=== PATIENT | male | born 1935 | race Caucasian/White ===

== ENCOUNTER 2017-03-10 14:33 | Observation (INO) | payer MEDICARE, BC ==
[2017-03-10] VITALS (7 sets, daily range): BP systolic 143–184; BP diastolic 71–92; PULSE 78–96; RESP 16–20; TEMP 97.4–98.4; O2SAT 97–99
[~2017-03-10] VITALS: Ht 180.3 cm; Wt 100.0 kg
[~2017-03-10 14:33] MED LIST: ACET325 PO; ALPR2TAB3 PO; APIX5TAB PO; ATOR40TA49 PO; CARV12.52 PO; DOCU1CAP39 PO; FURO20TA PO; OXYBXL10 PO; SUVO1TAB2; VIAG50TA PO
--- NOTE | 2017-03-10 15:08 | PD ---
Physical Exam Time Seen by Provider: 15:08 Narrative 81 y/o male with lower back pain and a wound on his buttocks. Vital signs reviewed. Seen at triage desk. Awaiting bed placement. Data Data Last Documented VS Vital Signs Date Time Temp Pulse Resp B/P Pulse Ox O2 Delivery O2 Flow Rate FiO2 03/10/17 14:39 98.4 88 16 165/92 97 Room Air [facility] Medical Record Reviewed: Yes Supervised Visit with AMPARO: Octaviano Lai Mar 10, 2017 15:08
[2017-03-10 16:52] LABS: AUTOMATED NEUTROPHIL # 3.3 TH/MM3 (1.8-7.7); BASOPHIL % 0.4 % (0.0-2.0); EOSINOPHIL # 0.3 TH/MM3 (0-0.4); EOSINOPHIL % 5.1 % (0.0-4.0); HEMATOCRIT 32.1 % (39.0-51.0); LYMPH % 20.8 % (9.0-44.0); LYMPHOCYTE # 1.1 TH/MM3 (1.0-4.8); MEAN CELL VOLUME 104.2 FL (80.0-100.0); MEAN CORPUSCULAR HEMOGLOBIN 36.1 PG (27.0-34.0); MEAN CORPUSCULAR HGB CONC 34.6 % (32.0-36.0); MONO % 12.2 % (0.0-8.0); NEUT % 61.5 % (16.0-70.0); PLATELET COUNT 98 TH/MM3 (150-450); RED BLOOD COUNT 3.08 MIL/MM3 (4.50-5.90); RED CELL DISTRIBUTION WIDTH 19.5 % (11.6-17.2); WHITE BLOOD COUNT 5.3 TH/MM3 (4.0-11.0)
[2017-03-10 16:54] LABS: HEMO FLAGS AUTO DIFF
[2017-03-10 17:03] LABS: ALKALINE PHOSPHATASE 61 U/L (45-117); TOTAL BILIRUBIN ADULT 1.2 MG/DL (0.2-1.0)
[2017-03-10 17:11] LABS: ALT (GPT) 18 U/L (12-78); ANION GAP 8 MEQ/L (5-15); AST (GOT) 32 U/L (15-37); BICARBONATE 27.5 MEQ/L (21.0-32.0); BLOOD UREA NITROGEN 20 MG/DL (7-18); CHLORIDE 103 MEQ/L (98-107); GLOMERULAR FILTRATION RATE 65 ML/MIN (>89); POTASSIUM 4.4 MEQ/L (3.5-5.1); SODIUM (NA) 138 MEQ/L (136-145)
[2017-03-10 17:18] LABS: BACTERIA, URINE RARE /hpf; BLOOD, URINE MOD (NEG); COMMENT (UR) CULTURE INDICATED; CULTURE IF INDICATED CULTURE INDICATED; GLUCOSE,URINE NEG (NEG); KETONE, URINE NEG (NEG); MUCUS URINE FEW /lpf (OCC); NITRITE,URINE NEG (NEG); PH, URINE 5.5 (5.0-8.5); SQUAMOUS EPITHELIAL CELL URINE <1 /hpf (0-5); URINE COLOR YELLOW (YELLW/STRAW)
--- NOTE | 2017-03-10 17:26 | PD ---
HPI Chief Complaint: Pain: Acute or Chronic Time Seen by Provider: 15:16 Travel History International Travel<30 days: No Contact w/Intl Traveler<30days: No Traveled to known affect area: No History of Present Illness HPI This is an 81-year-old male who presents today with complaints of back pain and lower extremity weakness. The patient states he fell several days ago and since then has had difficulty getting up secondary to weakness. He also reports pain in his lower lumbar back. The patient is currently taking eliquis. He has a large hematoma across his lower back. There is significant bruising across his upper lower back. He denies any loss of bowel or bladder function. Patient also reports a pressure ulcer on his right buttock near his anus. He states that he does sit a lot. He reports that it started about several weeks ago and is painful when he sits on the toilet. He reports putting a dressing over his ulcer to help with the pain and keep it as clean as possible. PFSH Past Medical History Hx Anticoagulant Therapy: Yes Arthritis: Yes Asthma: No Autoimmune Disease: No Blood Disorders: No Anxiety: No Depression: No Heart Rhythm Problems: Yes (A FIB) Cancer: Yes (MELANOMA BACK) Cardiovascular Problems: Yes High Cholesterol: Yes Chemotherapy: No Chest Pain: No Congestive Heart Failure: Yes COPD: No Cerebrovascular Accident: Yes Coronary Artery Disease: Yes Diabetes: No Diminished Hearing: No Endocrine: No Gastrointestinal Disorders: No GERD: Yes Genitourinary: Yes (CATHETER FROM 06/27 UNTIL 03/28, MULTIPLE UTI) Headaches: No Hepatitis: No Hiatal Hernia: No Hypertension: Yes Immune Disorder: No Implanted Vascular Access Dvce: No Kidney Stones: Yes (LITHOTRIPSY 06/20) Musculoskeletal: Yes (ARTHRITIS ) Neurologic: Yes (MINOR STROKE PER MRI FINDINGS) Psychiatric: No Reproductive: No Respiratory: Yes Immunizations Current: No Migraines: No Myocardial Infarction: Yes (1991) Radiation Therapy: No Renal Failure: Yes (HX OF) Seizures: No Sickle Cell Disease: No Sleep Apnea: No Thyroid Disease: No Ulcer: No Tetanus Vaccination: > 5 Years Influenza Vaccination: No PNEUMOCCOCAL Vaccine (Year): 2 Past Surgical History Abdominal Surgery: No AICD: No Appendectomy: No Arteriovenous Shunt: No Body Medical Devices: NECK METAL Cardiac Surgery: No Cholecystectomy: No Ear Surgery: No Endocrine Surgery: No Eye Surgery: No Genitourinary Surgery: Yes (LITHOTRIPSY) Gynecologic Surgery: No Insulin Pump: No Joint Replacement: Yes (BILATERAL TKR) Neurologic Surgery: Yes (ACDF 2013, CERVICAL SPINE C-5,C5-6 DECOMPRESSION AND FUSION) Oral Surgery: No Pacemaker: No Thoracic Surgery: No Other Surgery: Yes (BILAT KNEE,CSPINE 4-5,PROSTATE) Social History Alcohol Use: Yes (1 SCOTCH AND WATER EVERY OTHER DAY) Tobacco Use: No (OCCASIONAL CIGAR) Substance Use: No (PT DENIES ) Allergies-Medications (Allergen,Severity, Reaction): Coded Allergies: Crab (Verified Allergy, Severe, Hives, 05/17/16) SWELLING FACE Yogurt (Verified Allergy, Severe, Hives, 05/17/16) WITH [place] YOGURT ABLE TO EAT OTHER YOPGURT Codeine (Verified Allergy, Mild, hallucinations, 05/17/16) *MDRO Multi-Drug Resistant Organism (Unverified Allergy, Unknown, 05/17/16) 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), 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) Reported Meds & Prescriptions Reported Meds & Active Scripts Active Reported Mapap (Acetaminophen) 325 Mg Tab 650 Mg PO Q4HR PRN Carvedilol 25 Mg Tab 25 Mg PO BID Senna S (Sennosides-Docusate Sodium) 8.6-50 Mg Tab 2 Tab PO DAILY PRN Lasix (Furosemide) 40 Mg Tab 40 Mg PO DAILY Alprazolam 0.25 Mg Tab 0.25 Mg PO DAILY PRN Tramadol (Tramadol HCl) 50 Mg Tab 50 Mg PO DAILY PRN Amlodipine (Amlodipine Besylate) 5 Mg Tab 5 Mg PO DAILY Review of Systems Except as stated in HPI: all other systems reviewed are Neg General / Constitutional: No: Fever, Chills HENT: No: Headaches, Vertigo, Neck Pain Cardiovascular: No: Chest Pain or Discomfort, Palpitations Respiratory: No: Cough, Shortness of Breath Gastrointestinal: No: Nausea, Vomiting, Diarrhea, Abdominal Pain Genitourinary: No: Dysuria, Incontinence Musculoskeletal: Positive: Weakness (bilateral lower extremities), Pain (lower thoracic pain.) Skin: Positive Other (pressure sore on right buttocks) Neurologic: Positive: Weakness (bilateral lower extremities), No: Dizziness, Syncope, Headache Physical Exam Narrative GENERAL: Well-developed well-nourished male in no acute respiratory distress. SKIN: Focused skin assessment warm/dry. HEAD: Atraumatic. Normocephalic. EYES: No scleral icterus. No injection or drainage. ENT: No nasal bleeding or discharge. Mucous membranes pink and moist. NECK: Trachea midline. Supple. CARDIOVASCULAR: Regular rate and rhythm. No murmur appreciated. RESPIRATORY: No accessory muscle use. Clear to auscultation. Breath sounds equal bilaterally. GASTROINTESTINAL: Abdomen soft, non-tender, nondistended. MUSCULOSKELETAL: No obvious deformities. No clubbing. No cyanosis. Trace pretibial edema. Patient has bruising of his right lower thigh. BACK: Subjective tenderness in the lower thoracic spine. There is no posterior spinous process deformity. The patient has a large bruise extending across his lower thoracic back. NEUROLOGICAL: Awake and alert. No obvious cranial nerve deficits. The patient has 4+ out of 5 strength to his bilateral lower extremities. He is able to stand on his tippy toes however this is with assistance. Data Data Last Documented VS Vital Signs Date Time Temp Pulse Resp B/P Pulse Ox O2 Delivery O2 Flow Rate FiO2 03/10/17 18:00 97.8 81 16 148/86 99 Room Air Orders Mri T Spine W/O Contrast (03/10/17 15:37) Complete Blood Count With Diff (03/10/17 15:37) Comprehensive Metabolic Panel (03/10/17 15:37) Urinalysis - C+S If Indicated (03/10/17 15:37) Iv Access Insert/Monitor (03/10/17 15:37) Ecg Monitoring (03/10/17 15:37) Oximetry (03/10/17 15:37) Ct Abd/Pel W/O Iv Contrast (03/10/17 15:37) Urine Culture (03/10/17 16:11) Ceftriaxone Inj (Rocephin Inj) (03/10/17 17:45) Sodium Chlor 0.9% 1000 Ml Inj (Ns 1000 M (03/10/17 19:15) Admit Order (Ed Use Only) (03/10/17 19:16) Labs Laboratory Tests Test 03/10/17 03/10/17 03/10/17 15:15 15:55 16:11 Sodium Level 138 MEQ/L Potassium Level 4.4 MEQ/L Chloride Level 103 MEQ/L Carbon Dioxide Level 27.5 MEQ/L Anion Gap 8 MEQ/L Blood Urea Nitrogen 20 MG/DL Creatinine 1.08 MG/DL Estimat Glomerular Filtration 65 ML/MIN Rate Random Glucose 100 MG/DL Calcium Level 8.8 MG/DL Total Bilirubin 1.2 MG/DL Aspartate Amino Transf 32 U/L (AST/SGOT) Alanine Aminotransferase 18 U/L (ALT/SGPT) Alkaline Phosphatase 61 U/L Total Protein 6.7 GM/DL Albumin 3.3 GM/DL White Blood Count 5.3 TH/MM3 Red Blood Count 3.08 MIL/MM3 Hemoglobin 11.1 GM/DL Hematocrit 32.1 % Mean Corpuscular Volume 104.2 FL Mean Corpuscular Hemoglobin 36.1 PG Mean Corpuscular Hemoglobin 34.6 % Concent Red Cell Distribution Width 19.5 % Platelet Count 98 TH/MM3 Mean Platelet Volume 10.4 FL Neutrophils (%) (Auto) 61.5 % Lymphocytes (%) (Auto) 20.8 % Monocytes (%) (Auto) 12.2 % Eosinophils (%) (Auto) 5.1 % Basophils (%) (Auto) 0.4 % Neutrophils # (Auto) 3.3 TH/MM3 Lymphocytes # (Auto) 1.1 TH/MM3 Monocytes # (Auto) 0.6 TH/MM3 Eosinophils # (Auto) 0.3 TH/MM3 Basophils # (Auto) 0.0 TH/MM3 CBC Comment AUTO DIFF Differential Total Cells 100 Counted Neutrophils % (Manual) 61 % Lymphocytes % 19 % Monocytes % 16 % Eosinophils % 1 % Basophils % 1 % Neutrophils # (Manual) 3.3 TH/MM3 Metamyelocytes 1 % Myelocytes 1 % Nucleated Red Blood Cells 1 /100 WBC Differential Comment FINAL DIFF MANUAL Platelet Estimate LOW Platelet Morphology Comment NORMAL Ovalocytes 1+ Urine Color YELLOW Urine Turbidity CLEAR Urine pH 5.5 Urine Specific [place] 1.011 Urine Protein NEG mg/dL Urine Glucose (UA) NEG mg/dL Urine Ketones NEG mg/dL Urine Occult Blood MOD Urine Nitrite NEG Urine Bilirubin NEG Urine Urobilinogen LESS THAN 2.0 MG/DL Urine Leukocyte Esterase MOD Urine RBC 52 /hpf Urine WBC 64 /hpf Urine Squamous Epithelial <1 /hpf Cells Urine Amorphous Sediment RARE Urine Bacteria RARE /hpf Urine Mucus FEW /lpf Microscopic Urinalysis Comment CULTURE INDICATED MDM Medical Decision Making Medical Screen Exam Complete: Yes Emergency Medical Condition: Yes Differential Diagnosis Sciatica versus central canal stenosis versus contusion Narrative Course 81-year-old male who presents after having multiple falls. The patient states he's been weak. He denies any loss of bowel or bladder function. The patient does have a large bruises across his lower thoracic upper lumbar back area. CT scan shows bruising without any intra-abdominal injury. MRI of the thoracic spine shows no evidence of acute cord injury. The patient does have a UTI. He is also dehydrated. He will require admission for I dehydration. He's been given 1 g of Rocephin. Urine cultures are pending at this time. I discussed the case with Dr. Gonzalez, [facility] hospitalist, who agrees with a observation admission. Diagnosis Primary Impression: Weakness Additional Impressions: mechanical falls Dehydration Cystitis HX: anticoagulation Admitting Information Admitting Physician Requests: Observation Stephon Ureña MD Mar 10, 2017 17:26
[2017-03-10 17:31] LABS: BASOPHILS 1 % (0-2); CORRECTED NUCLEATED RBC 1 /100 WBC (0-0); EOSINOPHILS 1 % (0-4); METAMYELOCYTES 1 % (0-1); MYELOCYTES 1 % (0-0); NEUTROPHIL # MANUAL DIFF 3.3 TH/MM3 (1.8-7.7); POLYS (SEG NEUTROPHILS) 61 % (16-70); WBC DIFF SAMPLE 100
[2017-03-10 17:32] LABS: OVALOCYTES 1+ (NORMAL); PLATELET ESTIMATE SMEAR LOW (NORMAL); PLATELET MORPHOLOGY NORMAL (NORMAL); SCAN/DIFF FINAL DIFF MANUAL
--- NOTE | 2017-03-10 17:39 | RADRPT ---
EXAM DATE/TIME: 03/10/2017 16:47 [facility] COMPARISON: CT ABDOMEN & PELVIS W/O CONTRAST, April 14, 2014, 18:29. INDICATIONS : Patient with large hematoma across flank and back. ORAL CONTRAST: No oral contrast ingested. RADIATION DOSE: 15.39 CTDIvol (mGy) MEDICAL HISTORY : Cardiovascular disease. Cerebrovascular disease. Renal calculi. Hypertension SURGICAL HISTORY : Lumbar laminectomy ENCOUNTER: Initial ACUITY: 1 day PAIN SCALE: 5/10 LOCATION: Abdomen TECHNIQUE: Volumetric scanning of the abdomen and pelvis was performed. Using automated exposure control and ad justment of the mA and/or kV according to patient size, radiation dose was kept as low as reasonably achievable to obtain optimal diagnostic quality images. DICOM format image data is available electro nically for review and comparison. FINDINGS: There is evidence of subcutaneous hematomas within the left flank measuring 3.6 x 2.8 cm and more inf eriorly in the region of the left medial buttock measuring 5.1 x 5.5 cm. No underlying fracture is n oted at either site. The heart is enlarged. Bibasilar fibrotic scarring and/or atelectasis are noted. Evaluation of the solid organs of the abdomen is limited by the lack of intravenous contrast. Cholelithiasis is noted. Uncomplicated colonic diverticulosis is noted. There are tiny calcified nonobstructing bilateral r enal calculi with the largest on the left measuring 4 mm. Bilateral renal cysts are stable with the l argest on the left measuring 2.6 cm. No hydronephrosis is noted. The abdominal aortic aneurysm is ca lcified but is not aneurysmally dilated. The inferior vena cava is normal. There is no paraortic, ret roperitoneal or mesenteric lymphadenopathy. No ascites is noted. Degenerative changes and scoliosis of the thoracolumbar spine are noted. The urinary bladder is unremarkable. CONCLUSION: 1. Small subcutaneous hematomas within the left flank measuring 3.6 x 1.8 cm and left medial buttock measuring 5.1 x 5.5 cm without underlying bony abnormality. 2. Multiple calcified nonobstructing bilateral renal calculi. 3. Bilateral renal cysts. 4. Cholelithiasis. 5. Uncomplicated colonic diverticulosis. 6. Cardiomegaly. 7. Degenerative changes and scoliosis of the lumbar spine. Gerald Henning MD on March 10, 2017 at 17:23 Board Certified Radiologist. This report was verified electronically.
[2017-03-10] MEDS ORDERED: cefTRIAXone INJ 1,000 MG in SODIUM CHLORIDE 0.9% INJ 100 ML IV ONE (17:45)
--- NOTE | 2017-03-10 18:30 | RADRPT ---
EXAM DATE/TIME: 03/10/2017 17:47 [facility] COMPARISON: No previous studies available for comparison. INDICATIONS : Pain. MEDICAL HISTORY : Hypertension. Gastroesophageal reflux disease. Congestive heart failure. Coronary artery disease. SURGICAL HISTORY : Fusion, cervical. Total knee replacement, left. Total knee replacement, right. Lumbar laminectomy. ENCOUNTER: Initial ACUITY: 2 day PAIN SCORE: 6/10 LOCATION: Back. TECHNIQUE: Multiplanar multisequence MRI of the thoracic spine was performed. FINDINGS: There is no fracture or spondylolisthesis in the thoracic spine. Moderate degenerative disc disease i s present. Small right paracentral protrusion present at T8-9 without cord impingement. No cord mass or cord edema. Minimal scoliosis. CONCLUSION: 1. No acute findings. Moderate degenerative disc disease as above. No cord impingement or significant canal stenosis. No fracture or spondylolisthesis. Heterogeneous marrow appearance. Nakul Quinn MD on March 10, 2017 at 18:25 Board Certified Radiologist. This report was verified electronically.
[2017-03-10] MEDS ORDERED: SENN8.6T8 PO (19:01)
[2017-03-10] MEDS ORDERED: CARV25TA PO (19:01)
[2017-03-10] MEDS ORDERED: AMLO5TAB2 PO (19:01)
[2017-03-10] MEDS ORDERED: ALPR0.25 PO (19:01)
[2017-03-10] MEDS ORDERED: TRAM50TA PO (19:01)
[2017-03-10] MEDS ORDERED: FURO1TAB60 PO (19:01)
[2017-03-10] MEDS ORDERED: MAPA325T PO (19:01)
[2017-03-10] MEDS ORDERED: ACETAMINOPHEN 325 MG TAB PO PRN (19:30)
[2017-03-10] MEDS ORDERED: SODIUM CHLORIDE 0.9% FLUSH 10 ML FLUSH IV FLUSH PRN (19:30)
[2017-03-10] MEDS ORDERED: ONDANSETRON HCL 4 MG/2 ML VIAL IVP PRN (19:30)
[2017-03-10] MEDS: SODIUM CHLOR 0.9% 1000 ML INJ 1,000 ML IV SCH (19:51)
[2017-03-10] MEDS: SODIUM CHLORIDE 0.9% FLUSH 10 ML FLUSH IV FLUSH SCH (20:50)
[2017-03-11] VITALS (9 sets, daily range): BP systolic 111–178; BP diastolic 53–94; PULSE 53–107; RESP 18–20; TEMP 97.4–98.7; O2SAT 93–100
[2017-03-11] MEDS: SODIUM CHLOR 0.9% 1000 ML INJ 1,000 ML IV SCH ×2 (03:15→06:12)
[2017-03-11 05:53] LABS: AUTOMATED NEUTROPHIL # 2.6 TH/MM3 (1.8-7.7); BASOPHIL % 0.4 % (0.0-2.0); EOSINOPHIL # 0.2 TH/MM3 (0-0.4); EOSINOPHIL % 5.2 % (0.0-4.0); HEMATOCRIT 31.3 % (39.0-51.0); LYMPH % 23.1 % (9.0-44.0); MEAN CELL VOLUME 103.5 FL (80.0-100.0); MEAN CORPUSCULAR HEMOGLOBIN 35.6 PG (27.0-34.0); MEAN CORPUSCULAR HGB CONC 34.4 % (32.0-36.0); MONO % 11.7 % (0.0-8.0); NEUT % 59.6 % (16.0-70.0); PLATELET COUNT 73 TH/MM3 (150-450); RED BLOOD COUNT 3.03 MIL/MM3 (4.50-5.90); RED CELL DISTRIBUTION WIDTH 19.6 % (11.6-17.2); WHITE BLOOD COUNT 4.3 TH/MM3 (4.0-11.0)
[2017-03-11 05:58] LABS: HEMO FLAGS AUTO DIFF
[2017-03-11 06:47] LABS: BICARBONATE 27.9 MEQ/L (21.0-32.0); POTASSIUM 3.9 MEQ/L (3.5-5.1)
[2017-03-11 08:10] LABS: PLATELET ESTIMATE SMEAR LOW (NORMAL); PLATELET MORPHOLOGY NORMAL (NORMAL); SCAN/DIFF AUTO DIFF CONFIRMED
[2017-03-11] MEDS: SODIUM CHLORIDE 0.9% FLUSH 10 ML FLUSH IV FLUSH SCH (09:00)
[2017-03-11] MEDS ORDERED: MACR100C2 PO (13:12)
--- NOTE | 2017-03-11 13:13 | HHI.HP ---
[facility]PI [facility] Phillip Horner MD Admission Diagnosis dehydration, uti, weakness Diagnoses: Chief Complaint: Back pain and lower extremity weakness Travel History International Travel<30 Days: No Contact w/Intl Traveler <30 Da: No Traveled to Known Affected Are: No History of Present Illness Written by Jasbir Ramos, acting as scribe for Dr. Harris on 03/11/17 at 12:58. This note was transcribed by scribDANILO Bermeo. I, Dr. López Harris personally performed the history, physical exam, and medical decision making; and confirmed the accuracy of the information in the transcribed note. Authenticated by Dr. López Harris on 03/11/17 at 16:13. 81-year-old male with a past medical history of chronic back pain, CHF, BPH, A. fib who presented with lower back pain and difficulty ambulating. The patient states that he woke up with lower back pain last week. He states the pain has been making it difficult to stand and he has been having weakness in his legs. This is also been calling to see him to fall some. He denies any loss of bowel or bladder control. Patient reports that he had a similar episode with his back in the past that improved with steroids. He denies any lightheadedness, dizziness, urinary symptoms. Occasionally he gets constipated. At this time he reports that his back pain has resolved overnight and he's been able to ambulate without assistance. PT recommends [facility], which the patient refuses. The patient is asking to go home as his symptoms have resolved. The patient takes Tylenol and Aleve for back pain at home. Review of Systems Except as stated in HPI: all other systems reviewed are Neg Past Family Social History Past Medical History Anxiety Hypertension Chronic back pain Atrial fibrillation Coronary artery disease BPH History of stroke Congestive heart failure Past Surgical History TURP Lithotripsy Bilateral knee replacement Anterior cervical fusion Back surgery 2 Reported Medications Mapap (Acetaminophen) 325 Mg Tab 650 Mg PO Q4HR PRN Carvedilol 25 Mg Tab 25 Mg PO BID Senna S (Sennosides-Docusate Sodium) 8.6-50 Mg Tab 2 Tab PO DAILY PRN Lasix (Furosemide) 40 Mg Tab 40 Mg PO DAILY Alprazolam 0.25 Mg Tab 0.25 Mg PO DAILY PRN Tramadol (Tramadol HCl) 50 Mg Tab 50 Mg PO DAILY PRN Amlodipine (Amlodipine Besylate) 5 Mg Tab 5 Mg PO DAILY Allergies: Coded Allergies: Crab (Verified Allergy, Severe, Hives, 05/17/16) SWELLING FACE Yogurt (Verified Allergy, Severe, Hives, 05/17/16) WITH [place]ORR[place] YOGURT ABLE TO EAT OTHER YOPGURT Codeine (Verified Allergy, Mild, hallucinations, 05/17/16) *MDRO Multi-Drug Resistant Organism (Unverified Allergy, Unknown, 05/17/16) 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), MRSA (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) Active Ordered Medications Current Medications Medications (Trade) Dose Ordered Sig/Aruna Route Start Time Stop Time Status Last Admin (NS Flush) 2 ml UNSCH PRN IV FLUSH 03/10/17 19:30 (NS Flush) 2 ml BID IV FLUSH 03/10/17 21:00 (Tylenol) 650 mg Q4H PRN PO 03/10/17 19:30 Ondansetron HCl 4 mg 4 mg Q6H PRN IVP 03/10/17 19:30 (Rocephin Inj/NS Inj) 100 ml @ 200 mls/hr Q24H IV 03/11/17 18:00 Family History Reviewed, no family history pertinent to current chief complaint Social History Denies any tobacco or drug use Has 1 alcoholic beverage every other day Physical Exam Vital Signs Vital Signs Date Time Temp Pulse Resp B/P Pulse Ox O2 Delivery O2 Flow Rate FiO2 03/11/17 11:08 97.8 107 18 138/89 100 03/11/17 07:15 97.7 80 18 133/79 98 03/11/17 04:00 90 03/11/17 03:40 97.4 73 19 142/94 93 03/11/17 03:10 97.4 53 19 111/53 94 03/11/17 01:38 98.7 107 20 178/85 97 03/11/17 00:05 84 03/10/17 22:27 96 03/10/17 20:42 184/87 03/10/17 20:39 97.4 88 20 97 03/10/17 18:00 97.8 81 16 148/86 99 Room Air 03/10/17 16:21 97.8 78 16 146/71 97 Room Air 03/10/17 15:45 81 16 143/71 98 Room Air 03/10/17 15:34 86 16 03/10/17 14:39 98.4 88 16 165/92 97 Room Air Physical Exam GENERAL: Well-developed well-nourished. In no acute distress. SKIN: Warm and dry. Ecchymosis on the extremities and back. HEENT: Normocephalic. Pupils equal and round. Mucous membranes pink and moist. CARDIOVASCULAR: Irregular rate and rhythm. No murmur appreciated. RESPIRATORY: No accessory muscle use. Clear to auscultation. Breath sounds equal bilaterally. GASTROINTESTINAL: Abdomen soft, non-tender, nondistended. Bowel sounds x4. MUSCULOSKELETAL: No obvious deformities. No clubbing or cyanosis. No edema. NEUROLOGICAL: Awake and alert. No focal neurological deficits. Moves upper and lower extremities spontaneously. Normal speech. PSYCHIATRIC: Appropriate mood and affect; insight and judgment normal. Laboratory Laboratory Tests Test 03/10/17 03/10/17 03/10/17 03/11/17 15:15 15:55 16:11 05:32 Sodium Level 138 139 Potassium Level 4.4 3.9 Chloride Level 103 104 Carbon Dioxide Level 27.5 27.9 Anion Gap 8 7 Blood Urea Nitrogen 20 17 Creatinine 1.08 0.93 Estimat Glomerular Filtration 65 78 Rate Random Glucose 100 106 Calcium Level 8.8 8.8 Total Bilirubin 1.2 Aspartate Amino Transf 32 (AST/SGOT) Alanine Aminotransferase 18 (ALT/SGPT) Alkaline Phosphatase 61 Total Protein 6.7 Albumin 3.3 White Blood Count 5.3 4.3 Red Blood Count 3.08 3.03 Hemoglobin 11.1 10.8 Hematocrit 32.1 31.3 Mean Corpuscular Volume 104.2 103.5 Mean Corpuscular Hemoglobin 36.1 35.6 Mean Corpuscular Hemoglobin 34.6 34.4 Concent Red Cell Distribution Width 19.5 19.6 Platelet Count 98 73 Mean Platelet Volume 10.4 8.9 Neutrophils (%) (Auto) 61.5 59.6 Lymphocytes (%) (Auto) 20.8 23.1 Monocytes (%) (Auto) 12.2 11.7 Eosinophils (%) (Auto) 5.1 5.2 Basophils (%) (Auto) 0.4 0.4 Neutrophils # (Auto) 3.3 2.6 Lymphocytes # (Auto) 1.1 1.0 Monocytes # (Auto) 0.6 0.5 Eosinophils # (Auto) 0.3 0.2 Basophils # (Auto) 0.0 0.0 CBC Comment AUTO DIFF AUTO DIFF Differential Total Cells 100 Counted Neutrophils % (Manual) 61 Lymphocytes % 19 Monocytes % 16 Eosinophils % 1 Basophils % 1 Neutrophils # (Manual) 3.3 Metamyelocytes 1 Myelocytes 1 Nucleated Red Blood Cells 1 Differential Comment FINAL DIFF AUTO DIFF MANUAL CONFIRMED Platelet Estimate LOW LOW Platelet Morphology Comment NORMAL NORMAL Ovalocytes 1+ Urine Color YELLOW Urine Turbidity CLEAR Urine pH 5.5 Urine Specific [place] 1.011 Urine Protein NEG Urine Glucose (UA) NEG Urine Ketones NEG Urine Occult Blood MOD Urine Nitrite NEG Urine Bilirubin NEG Urine Urobilinogen LESS THAN 2.0 Urine Leukocyte Esterase MOD Urine RBC 52 Urine WBC 64 Urine Squamous Epithelial <1 Cells Urine Amorphous Sediment RARE Urine Bacteria RARE Urine Mucus FEW Microscopic Urinalysis Comment CULTURE INDICATED Date/Time Procedure Status Source Growth 03/10/17 16:11 Urine Culture Received Urine Random Urine Pending Result Diagram: 03/11/17 0532 03/11/17 0532 Imaging Last Impressions Thoracic Spine MRI 03/10/171536 Signed Impressions: Service Date/Time: February 17:47 - CONCLUSION: 1. No acute findings. Moderate degenerative disc disease as above. No cord impingement or significant canal stenosis. No fracture or spondylolisthesis. Heterogeneous marrow appearance. Nakul Quinn MD Abdomen/Pelvis CT 03/10/171536 Signed Impressions: Service Date/Time: February 16:47 - CONCLUSION: 1. Small subcutaneous hematomas within the left flank measuring 3.6 x 1.8 cm and left medial buttock measuring 5.1 x 5.5 cm without underlying bony abnormality. 2. Multiple calcified nonobstructing bilateral renal calculi. 3. Bilateral renal cysts. 4. Cholelithiasis. 5. Uncomplicated colonic diverticulosis. 6. Cardiomegaly. 7. Degenerative changes and scoliosis of the lumbar spine. Gerald Henning MD Assessment and Plan Assessment and Plan 81-year-old male with a past medical history of chronic back pain, CHF, BPH, A. fib who presented with lower back pain and difficulty ambulating Acute on chronic back pain: Symptoms have improved. T-spine MRI with moderate degenerative changes, but no acute process, significant cord impingement or canal stenosis. Abdominal CT shows degenerative changes and scoliosis of the lumbar spine. Falls: Secondary to back pain. Subcutaneous left flank hematomas seen on abdominal CT. Symptoms have improved. PT recommends [facility], patient refuses. He reports he has DME from previous hospitalizations at home. UTI: UA with evidence of UTI. Could be contributing to patient's lower back discomfort. Urine culture preliminarily growing group D enterococcus. Continue on Macrobid. Follow-up with PCP for final culture and sensitivity results. Disposition: Discharge home today with [facility] PT and antibiotics for UTI Discharge patient to home Condition on discharge: Improved Heart healthy Diet as tolerated Ad Corinna activity Rx written: Macrobid for 5 days. Follow-up with primary care physician within one week. Discussed Condition With Patient, RN, case management Jasbir Ramos Mar 11, 2017 1:12 pm Jesica Harris DO Mar 11, 2017 4:14 pm
[2017-03-11] MEDS ORDERED: cefTRIAXone INJ 1,000 MG in SODIUM CHLORIDE 0.9% INJ 100 ML IV SCH (18:00)
== END 2017-03-11 15:44 | disposition home or self-care (01) ==
LOC: NEPE 14:33 → NEDA 19:17 → NEPGCP 20:31
PROVIDERS: ADMIT Hospitalist; ATTEND Hospitalist
DX: M54.5 Low back pain (principal); G89.29 Other chronic pain; N20.0 Calculus of kidney; K80.20 Calculus of gallbladder without cholecystitis without obstruction; N28.1 Cyst of kidney, acquired; K57.30 Diverticulosis of large intestine without perforation or abscess without bleeding; L89.319 Pressure ulcer of right buttock, unspecified stage; S30.1XXA Contusion of abdominal wall, initial encounter; N39.0 Urinary tract infection, site not specified; E86.0 Dehydration; I25.10 Atherosclerotic heart disease of native coronary artery without angina pectoris; I11.0 Hypertensive heart disease with heart failure; I50.9 Heart failure, unspecified; I48.91 Unspecified atrial fibrillation; I25.2 Old myocardial infarction; I71.4 Abdominal aortic aneurysm, without rupture; E78.00 Pure hypercholesterolemia, unspecified; K21.9 Gastro-esophageal reflux disease without esophagitis; K59.00 Constipation, unspecified; F41.9 Anxiety disorder, unspecified; M41.9 Scoliosis, unspecified; M51.36 Other intervertebral disc degeneration, lumbar region; N40.0 Benign prostatic hyperplasia without lower urinary tract symptoms; M19.90 Unspecified osteoarthritis, unspecified site; Z79.899 Other long term (current) drug therapy; Z86.73 Personal history of transient ischemic attack (TIA), and cerebral infarction without residual deficits; Z85.820 Personal history of malignant melanoma of skin; Z96.653 Presence of artificial knee joint, bilateral; Z98.1 Arthrodesis status; W19.XXXA Unspecified fall, initial encounter
CPT/HCPCS: 72146; 74176; 80048; 80053; 81001; 85007; 85025; 85027; 87077; 87086; 87186; 96365; 97162; 99285; G0378; G8987; G8988; J0696; J7030

== ENCOUNTER → 2017-06-27 | Outpatient (CLI) | payer MEDICARE, BC ==
[~2017-06-27] MED LIST changes: -ACET325 PO; +ALPR0.25 PO; -ALPR2TAB3 PO; +AMIT25TA9 PO; +AMLO2.5C PO; +ATOR40TA16 PO; -ATOR40TA49 PO; +COLA100C5 PO; -DOCU1CAP39 PO; +FERR325C PO; +FERR325T18 PO; +HYDR-3516 PO; +MAPA500T13 PO; +OMEP40CA2 PO; +OXYB10TA PO; -OXYBXL10 PO; +POTA-163 PO; -SUVO1TAB2; +SUVO1TAB2 PO; -VIAG50TA PO
[2017-06-27 12:24] LABS: AUTOMATED NEUTROPHIL # 2.2 TH/MM3 (1.8-7.7); BASOPHIL % 0.2 % (0.0-2.0); EOSINOPHIL # 0.2 TH/MM3 (0-0.4); EOSINOPHIL % 4.9 % (0.0-4.0); HEMATOCRIT 36.3 % (39.0-51.0); LYMPH % 23.7 % (9.0-44.0); LYMPHOCYTE # 0.8 TH/MM3 (1.0-4.8); MEAN CELL VOLUME 106.1 FL (80.0-100.0); MEAN CORPUSCULAR HEMOGLOBIN 35.6 PG (27.0-34.0); MEAN CORPUSCULAR HGB CONC 33.5 % (32.0-36.0); MONO % 9.6 % (0.0-8.0); NEUT % 61.6 % (16.0-70.0); PLATELET COUNT 74 TH/MM3 (150-450); RED BLOOD COUNT 3.42 MIL/MM3 (4.50-5.90); RED CELL DISTRIBUTION WIDTH 16.4 % (11.6-17.2); WHITE BLOOD COUNT 3.6 TH/MM3 (4.0-11.0)
[2017-06-27 12:29] LABS: HEMO FLAGS AUTO DIFF
[2017-06-27 12:31] LABS: APTT (PATIENT) 27.5 SEC (24.3-30.1); PROTHROMBIN TIME - PATIENT 11.5 SEC (9.8-11.6)
[2017-06-27 12:36] LABS: BACTERIA, URINE RARE /hpf; BLOOD, URINE MOD (NEG); COMMENT (UR) CULTURE INDICATED; CULTURE IF INDICATED CULTURE INDICATED; GLUCOSE,URINE NEG (NEG); KETONE, URINE NEG (NEG); NITRITE,URINE NEG (NEG); PH, URINE 5.5 (5.0-8.5); URINE COLOR LIGHT-YELLOW (YELLW/STRAW)
--- NOTE | 2017-06-27 13:08 | RADRPT ---
EXAM DATE/TIME: 06/27/2017 12:57 [facility] COMPARISON: CHEST PA & LAT, April 28, 2014, 14:14. ABDOMEN KUB ONLY, May 15, 2014, 16:56. INDICATIONS : Evaluate for pneumonia, pneumothorax, or communicable disease. Pre op for back surgery tomorrow. MEDICAL HISTORY : Hypertension. Chronic obstructive pulmonary disease. Congestive heart failure. CVA. Myocardial in farction. Coronary artery disease. Afib. Renal Disease. Melanoma on back. SURGICAL HISTORY : None. ENCOUNTER: Initial ACUITY: 1 day PAIN SCORE: 0/10 LOCATION: Bilateral chest FINDINGS: The heart is enlarged. The lungs appear clear. The bony structures are grossly intact. Exam is unchan ged compared to previous dated 04/28/14. CONCLUSION: 1. No acute cardiopulmonary findings. Stable compared to previous. Zeeshan Monique MD on June 27, 2017 at 13:06 Board Certified Radiologist. This report was verified electronically.
[2017-06-27 13:19] LABS: OVALOCYTES 1+ (NORMAL); PLATELET ESTIMATE SMEAR LOW (NORMAL); PLATELET MORPHOLOGY ENLARGED (NORMAL); SCAN/DIFF AUTO DIFF CONFIRMED
[2017-06-27 13:33] LABS: ALKALINE PHOSPHATASE 67 U/L (45-117); ALT (GPT) 22 U/L (12-78); ANION GAP 6 MEQ/L (5-15); AST (GOT) 14 U/L (15-37); BLOOD UREA NITROGEN 27 MG/DL (7-18); CHLORIDE 102 MEQ/L (98-107); GLOMERULAR FILTRATION RATE 60 ML/MIN (>89); GLUCOSE,FASTING 105 MG/DL (74-99); POTASSIUM 4.5 MEQ/L (3.5-5.1); SODIUM (NA) 139 MEQ/L (136-145); TOTAL BILIRUBIN ADULT 0.8 MG/DL (0.2-1.0)
== END ==
LOC: CPRE 11:47
PROVIDERS: ATTEND Neurological Surgery
DX: Z01.812 Encounter for preprocedural laboratory examination (principal); Z01.811 Encounter for preprocedural respiratory examination; M48.00 Spinal stenosis, site unspecified; R82.99 Other abnormal findings in urine; Z79.01 Long term (current) use of anticoagulants
CPT/HCPCS: 36415; 71020; 80053; 81001; 85025; 85610; 85730; 87086

== ENCOUNTER 2017-07-18 16:11 | Emergency (ER) | payer MEDICARE, BC ==
[~2017-07-18] VITALS: Ht 180.3 cm; Wt 95.0 kg
[~2017-07-18 16:11] MED LIST changes: -AMIT25TA9 PO; -AMLO2.5C PO; -FERR325C PO; -HYDR-3516 PO
[2017-07-18 16:13] VITALS: BP 139/91; PULSE 88; RESP 15; TEMP 97.5; O2SAT 98
--- NOTE | 2017-07-18 16:49 | PD ---
HPI Chief Complaint: Neuro Symptoms/ Deficits Time Seen by Provider: 16:23 Travel History International Travel<30 days: No Contact w/Intl Traveler<30days: No Traveled to known affect area: No History of Present Illness HPI 82yo M was sent in by his cardiopulmonary technologist Dr. Jacobsen for new onset right cranial nerve palsy. Pt has been having double vision for 4 days. Denies any fever, headache, chest pain, sob, n/v, abdominal pain, focal weakness or numbness. said he had a stroke before. PFSH Past Medical History Hx Anticoagulant Therapy: Yes Arthritis: Yes Asthma: No Autoimmune Disease: No Blood Disorders: No Anxiety: No Depression: No Heart Rhythm Problems: Yes (A FIB) Cancer: Yes (MELANOMA BACK) Cardiovascular Problems: Yes High Cholesterol: Yes Chemotherapy: No Chest Pain: No Congestive Heart Failure: Yes COPD: No Cerebrovascular Accident: Yes Coronary Artery Disease: Yes Diabetes: No Diminished Hearing: No Endocrine: No Gastrointestinal Disorders: No GERD: Yes Genitourinary: Yes (CATHETER FROM 06/27 UNTIL 03/28, MULTIPLE UTI) Headaches: No Hepatitis: No Hiatal Hernia: No Hypertension: Yes Immune Disorder: No Implanted Vascular Access Dvce: No Kidney Stones: Yes (LITHOTRIPSY 06/20) Musculoskeletal: Yes (ARTHRITIS ) Neurologic: Yes (MINOR STROKE PER MRI FINDINGS) Psychiatric: No Reproductive: No Respiratory: Yes Immunizations Current: No Migraines: No Myocardial Infarction: Yes (1991) Radiation Therapy: No Renal Failure: Yes (HX OF) Seizures: No Sickle Cell Disease: No Sleep Apnea: No Thyroid Disease: No Ulcer: No PNEUMOCCOCAL Vaccine (Year): 2 Past Surgical History Abdominal Surgery: No AICD: No Appendectomy: No Arteriovenous Shunt: No Body Medical Devices: NECK METAL Cardiac Surgery: No Cholecystectomy: No Ear Surgery: No Endocrine Surgery: No Eye Surgery: No Genitourinary Surgery: Yes (LITHOTRIPSY) Gynecologic Surgery: No Insulin Pump: No Joint Replacement: Yes (BILATERAL TKR) Neurologic Surgery: Yes (ACDF 2012, CERVICAL SPINE C-5,C5-6 DECOMPRESSION AND FUSION) Oral Surgery: No Pacemaker: No Thoracic Surgery: No Other Surgery: Yes (HERNIA REPAIR) Social History Alcohol Use: Yes (occasionally) Tobacco Use: No Substance Use: No Allergies-Medications (Allergen,Severity, Reaction): Coded Allergies: Lactobacillus acidophilus (Verified Allergy, Severe, Hives, 06/27/17) WITH LIBYAN YOGURT ABLE TO EAT OTHER YOPGURT Lactobacillus bulgaricus (Verified Allergy, Severe, Hives, 06/27/17) WITH LIBYAN YOGURT ABLE TO EAT OTHER YOPGURT Lactobacillus gasseri (Verified Allergy, Severe, Hives, 06/27/17) WITH LIBYAN YOGURT ABLE TO EAT OTHER YOPGURT Streptococcus thermophilus (Verified Allergy, Severe, Hives, 06/27/17) WITH LIBYAN YOGURT ABLE TO EAT OTHER YOPGURT crab (Verified Allergy, Severe, Hives, 06/27/17) SWELLING FACE *MDRO Multi-Drug Resistant Organism (Verified Allergy, Unknown, 06/27/17) 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), MRSA (04/28) Sulfa (Sulfonamide Antibiotics) (Verified Allergy, Unknown, 07/18/17) Reported Meds & Prescriptions Reported Meds & Active Scripts Active Reported Colace (Docusate Sodium) 100 Mg Capsule 1 Tab PO DAILY PRN Mapap Extra Strength (Acetaminophen) 500 Mg Tab 500 Mg PO Q4-6H PRN Belsomra (Suvorexant) 10 Mg Tab 10 Mg PO HS Oxybutynin ER 24 HR (Oxybutynin Chloride) 10 Mg Tab 10 Mg PO HS Eliquis (Apixaban) 5 Mg Tab 5 Mg PO HS Atorvastatin (Atorvastatin Calcium) 40 Mg Tab 40 Mg PO HS Omeprazole 40 Mg Cap 40 Mg PO DAILY Furosemide 20 Mg Tab 20 Mg PO DAILY Carvedilol 12.5 Mg Tab 12.5 Mg PO BID Potassium Chloride ER (Potassium Chloride) 20 Meq Tab 20 Meq PO DAILY Alprazolam 0.25 Mg Tab 0.25 Mg PO DAILY PRN Review of Systems Except as stated in HPI: all other systems reviewed are Neg Physical Exam Narrative GENERAL: 82yo M not in distress. SKIN: Focused skin assessment warm/dry. HEAD: Atraumatic. Normocephalic. EYES: No ptosis. Pupils equal and round at 3mm bilaterally. CN palsy right. ENT: No nasal bleeding or discharge. Mucous membranes pink and moist. NECK: Trachea midline. No JVD. CARDIOVASCULAR: Regular rate and rhythm. No murmur appreciated. RESPIRATORY: No accessory muscle use. Clear to auscultation. Breath sounds equal bilaterally. GASTROINTESTINAL: Abdomen soft, non-tender, nondistended. Hepatic and splenic margins not palpable. MUSCULOSKELETAL: No obvious deformities. No clubbing. No cyanosis. No edema. NEUROLOGICAL: Awake and alert. Right CN palsy. Motor grossly within normal limits. Normal speech. Sensation intact bilaterally. PSYCHIATRIC: Appropriate mood and affect; insight and judgment normal. Data Data Last Documented VS Vital Signs Date Time Temp Pulse Resp B/P (MAP) Pulse Ox O2 Delivery O2 Flow Rate FiO2 07/18/17 16:13 97.5 88 15 139/91 (107) 98 Room Air Orders Orders Ct Brain W/O Iv Contrast(Rout) (07/18/17 ) Complete Blood Count With Diff (07/18/17 16:33) Basic Metabolic Panel (Bmp) (07/18/17 16:33) Prothrombin Time / Inr (Pt) (07/18/17 16:33) Act Partial Throm Time (Ptt) (07/18/17 16:33) Labs Laboratory Tests Test 07/18/17 16:46 White Blood Count 2.9 TH/MM3 Red Blood Count 3.23 MIL/MM3 Hemoglobin 11.8 GM/DL Hematocrit 34.5 % Mean Corpuscular Volume 107.0 FL Mean Corpuscular Hemoglobin 36.7 PG Mean Corpuscular Hemoglobin Concent 34.3 % Red Cell Distribution Width 16.4 % Platelet Count 71 TH/MM3 Mean Platelet Volume 10.0 FL Neutrophils (%) (Auto) 51.8 % Lymphocytes (%) (Auto) 32.5 % Monocytes (%) (Auto) 9.4 % Eosinophils (%) (Auto) 5.9 % Basophils (%) (Auto) 0.4 % Neutrophils # (Auto) 1.5 TH/MM3 Lymphocytes # (Auto) 1.0 TH/MM3 Monocytes # (Auto) 0.3 TH/MM3 Eosinophils # (Auto) 0.2 TH/MM3 Basophils # (Auto) 0.0 TH/MM3 CBC Comment AUTO DIFF Differential Comment AUTO DIFF CONFIRMED Platelet Estimate LOW Platelet Morphology Comment ENLARGED Ovalocytes 1+ Prothrombin Time 11.2 SEC Prothromb Time International Ratio 1.1 RATIO Activated Partial Thromboplast Time 27.2 SEC Blood Urea Nitrogen 18 MG/DL Creatinine 1.17 MG/DL Random Glucose 109 MG/DL Calcium Level 8.5 MG/DL Sodium Level 140 MEQ/L Potassium Level 4.4 MEQ/L Chloride Level 104 MEQ/L Carbon Dioxide Level 29.6 MEQ/L Anion Gap 6 MEQ/L Estimat Glomerular Filtration Rate 60 ML/MIN MDM Medical Decision Making Medical Screen Exam Complete: Yes Emergency Medical Condition: Yes Differential Diagnosis Idiopathic six nerve palsy vs. intracranial mass vs. myasthenia gravis Narrative Course 82yo well appearing male was sent in by cardiopulmonary technologist for evaluation of new right cranial six palsy. Pt has been having double vision for a few days. Said double vision is with both eyes open. Pt denies any headache, neck pain, eye pain, fever, or any focal neurologic deficits. CT brain showed old lacunar infarct in left basal ganglia. Old infarct in right occipital lobe. No acute infarct, acute hemorrhage or midline shift or extra-axial bleed. Instructed pt to follow up with cardiopulmonary technologist. Return precautions given. 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 Return to the ED if symptoms worsen. Med/Other Pt SpecificInfo: No Change to Meds Disposition: 01 DISCHARGE HOME Condition: Stable Yarelis Chavez DO Jul 18, 2017 16:49
[2017-07-18 17:16] LABS: AUTOMATED NEUTROPHIL # 1.5 TH/MM3 (1.8-7.7); BASOPHIL % 0.4 % (0.0-2.0); EOSINOPHIL # 0.2 TH/MM3 (0-0.4); EOSINOPHIL % 5.9 % (0.0-4.0); HEMATOCRIT 34.5 % (39.0-51.0); LYMPH % 32.5 % (9.0-44.0); MEAN CORPUSCULAR HEMOGLOBIN 36.7 PG (27.0-34.0); MEAN CORPUSCULAR HGB CONC 34.3 % (32.0-36.0); MONO % 9.4 % (0.0-8.0); NEUT % 51.8 % (16.0-70.0); PLATELET COUNT 71 TH/MM3 (150-450); RED BLOOD COUNT 3.23 MIL/MM3 (4.50-5.90); RED CELL DISTRIBUTION WIDTH 16.4 % (11.6-17.2); WHITE BLOOD COUNT 2.9 TH/MM3 (4.0-11.0)
[2017-07-18 17:19] LABS: HEMO FLAGS AUTO DIFF
[2017-07-18 17:27] LABS: APTT (PATIENT) 27.2 SEC (24.3-30.1); INTERNATIONAL NORMALIZED RATIO 1.1 RATIO; PROTHROMBIN TIME - PATIENT 11.2 SEC (9.8-11.6)
[2017-07-18 17:57] LABS: BICARBONATE 29.6 MEQ/L (21.0-32.0); POTASSIUM 4.4 MEQ/L (3.5-5.1)
[2017-07-18 18:00] LABS: PLATELET ESTIMATE SMEAR LOW (NORMAL); PLATELET MORPHOLOGY ENLARGED (NORMAL); SCAN/DIFF AUTO DIFF CONFIRMED
[2017-07-18 18:03] LABS: OVALOCYTES 1+ (NORMAL)
--- NOTE | 2017-07-18 19:00 | RADRPT ---
EXAM DATE/TIME: 07/18/2017 18:50 [facility] COMPARISON: CT BRAIN W/O CONTRAST, May 21, 2013, 13:35. INDICATIONS : Visual changes for four days. RADIATION DOSE: 48.13 CTDIvol (mGy) MEDICAL HISTORY : Cardiovascular disease. Hypertension. melanoma, renal failure SURGICAL HISTORY : None. ENCOUNTER: Initial ACUITY: 1 day PAIN SCALE: 0/10 LOCATION: Bilateral head TECHNIQUE: Multiple contiguous axial images were obtained of the head. Using automated exposure control and adj ustment of the mA and/or kV according to patient size, radiation dose was kept as low as reasonably a chievable to obtain optimal diagnostic quality images. DICOM format image data is available electro nically for review and comparison. FINDINGS: CEREBRUM: Mild central cerebral atrophy is noted. Old lacunar infarct within the left basal ganglia is stable. Mild periventricular white matter small vessel ischemic changes are noted bilaterally. There is a sma ll old infarct involving the right occipital lobe. No evidence of midline shift, mass lesion, hemorrh age or acute infarction. No extra-axial fluid collections are seen. POSTERIOR FOSSA: The cerebellum and brainstem are intact. The 4th ventricle is midline. The cerebellopontine angle i s unremarkable. EXTRACRANIAL: The visualized portion of the orbits is intact. SKULL: The calvaria is intact. No evidence of skull fracture. CONCLUSION: 1. Mild cerebral atrophy. 2. Small right occipital lobe infarct. 3. Old lacunar infarct within the left basal ganglia. 4. Mild periventricular white matter small vessel ischemic changes bilaterally. 5. No acute infarct, acute hemorrhage, midline shift or extra-axial bleed. Gerald Henning MD on July 18, 2017 at 18:55 Board Certified Radiologist. This report was verified electronically.
== END 2017-07-18 19:49 | disposition home or self-care (01) ==
LOC: NEPC 16:11
DX: H49.21 Sixth [abducent] nerve palsy, right eye (principal); I11.0 Hypertensive heart disease with heart failure; I50.9 Heart failure, unspecified; M19.90 Unspecified osteoarthritis, unspecified site; I48.91 Unspecified atrial fibrillation; E78.00 Pure hypercholesterolemia, unspecified; K21.9 Gastro-esophageal reflux disease without esophagitis; I25.10 Atherosclerotic heart disease of native coronary artery without angina pectoris; Z86.73 Personal history of transient ischemic attack (TIA), and cerebral infarction without residual deficits
CPT/HCPCS: 70450; 80048; 85025; 85610; 85730; 99285

== ENCOUNTER 2017-08-25 11:56 | Emergency (ER) | payer MEDICARE, BC ==
[~2017-08-25] VITALS: Ht 180.3 cm; Wt 91.0 kg
[~2017-08-25 11:56] MED LIST changes: +CIPR-9 PO; -FERR325T18 PO
[2017-08-25 12:21] VITALS: BP 132/68; PULSE 78; RESP 16; TEMP 98.7; O2SAT 97
--- NOTE | 2017-08-25 13:31 | PD ---
HPI Chief Complaint: Complaint Time Seen by Provider: 13:22 Travel History International Travel<30 days: No Contact w/Intl Traveler<30days: No Traveled to known affect area: No History of Present Illness HPI This 82-year-old male says he had some burning with urination earlier. He has a history of a TURP in the past. He gets occasional hematuria. He follows with Dr. Medeiros. He called Dr. Medeiros and he asked him to come here for Urine evaluated. He does take Eliquis. He has a history of congestive heart failure. He has no complaint of chest pain or shortness of breath. He does not have trouble urinating PFSH Past Medical History Hx Anticoagulant Therapy: Yes Arthritis: Yes Asthma: No Autoimmune Disease: No Blood Disorders: No Anxiety: No Depression: No Heart Rhythm Problems: Yes (A FIB) Cancer: Yes (MELANOMA BACK) Cardiovascular Problems: Yes (CHF) High Cholesterol: Yes Chemotherapy: No Chest Pain: No Congestive Heart Failure: Yes COPD: No Cerebrovascular Accident: Yes Coronary Artery Disease: Yes Diabetes: No Diminished Hearing: No Endocrine: No Gastrointestinal Disorders: No GERD: Yes Genitourinary: Yes (CATHETER FROM 06/27 UNTIL 03/28, MULTIPLE UTI) Headaches: No Hepatitis: No Hiatal Hernia: No Hypertension: Yes Immune Disorder: No Implanted Vascular Access Dvce: No Kidney Stones: Yes (LITHOTRIPSY 06/20) Musculoskeletal: Yes (ARTHRITIS ) Neurologic: Yes (MINOR STROKE PER MRI FINDINGS) Psychiatric: No Reproductive: No Respiratory: Yes Immunizations Current: No Migraines: No Myocardial Infarction: Yes (1991) Radiation Therapy: No Renal Failure: Yes (HX OF) Seizures: No Sickle Cell Disease: No Sleep Apnea: No Thyroid Disease: No Ulcer: No PNEUMOCCOCAL Vaccine (Year): 2 ?: Not Past Surgical History Abdominal Surgery: No AICD: No Appendectomy: No Arteriovenous Shunt: No Body Medical Devices: NECK METAL Cardiac Surgery: No Cholecystectomy: No Ear Surgery: No Endocrine Surgery: No Eye Surgery: No Genitourinary Surgery: Yes (LITHOTRIPSY) Gynecologic Surgery: No Insulin Pump: No Joint Replacement: Yes (BILATERAL TKR) Neurologic Surgery: Yes (ACDF 2012, CERVICAL SPINE C-5,C5-6 DECOMPRESSION AND FUSION) Oral Surgery: No Pacemaker: No Thoracic Surgery: No Other Surgery: Yes (HERNIA REPAIR) Social History Alcohol Use: Yes (occasionally) Tobacco Use: No Substance Use: No Allergies-Medications (Allergen,Severity, Reaction): Coded Allergies: Lactobacillus acidophilus (Verified Allergy, Severe, Hives, 06/27/17) WITH QATARI YOGURT ABLE TO EAT OTHER YOPGURT Lactobacillus bulgaricus (Verified Allergy, Severe, Hives, 06/27/17) WITH QATARI YOGURT ABLE TO EAT OTHER YOPGURT Lactobacillus gasseri (Verified Allergy, Severe, Hives, 06/27/17) WITH QATARI YOGURT ABLE TO EAT OTHER YOPGURT Streptococcus thermophilus (Verified Allergy, Severe, Hives, 06/27/17) WITH QATARI YOGURT ABLE TO EAT OTHER YOPGURT crab (Verified Allergy, Severe, Hives, 06/27/17) SWELLING FACE *MDRO Multi-Drug Resistant Organism (Verified Allergy, Unknown, 06/27/17) 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), MRSA (04/28) Sulfa (Sulfonamide Antibiotics) (Verified Allergy, Unknown, 07/18/17) Reported Meds & Prescriptions Reported Meds & Active Scripts Active Reported Colace (Docusate Sodium) 100 Mg Capsule 1 Tab PO DAILY PRN Mapap Extra Strength (Acetaminophen) 500 Mg Tab 500 Mg PO Q4-6H PRN Belsomra (Suvorexant) 10 Mg Tab 10 Mg PO HS Oxybutynin ER 24 HR (Oxybutynin Chloride) 10 Mg Tab 10 Mg PO HS Eliquis (Apixaban) 5 Mg Tab 5 Mg PO HS Atorvastatin (Atorvastatin Calcium) 40 Mg Tab 40 Mg PO HS Omeprazole 40 Mg Cap 40 Mg PO DAILY Furosemide 20 Mg Tab 20 Mg PO DAILY Carvedilol 12.5 Mg Tab 12.5 Mg PO BID Alprazolam 0.25 Mg Tab 0.25 Mg PO DAILY PRN Review of Systems General / Constitutional: No: Fever, Chills Eyes: No: Diploplia, Blurred Vision HENT: No: Headaches, Vertigo Cardiovascular: No: Chest Pain or Discomfort, Palpitations Respiratory: No: Cough, Shortness of Breath Gastrointestinal: No: Nausea Genitourinary: Positive: Dysuria, Hematuria, No: Pelvic Pain, Flank Pain Musculoskeletal: No: Myalgias, Arthralgias Skin: No Rash, No Itching Neurologic: No: Weakness, Dizziness Physical Exam Narrative GENERAL: Well-developed male SKIN: Focused skin assessment warm/dry. HEAD: Atraumatic. Normocephalic. EYES: Pupils equal and round. No scleral icterus. No injection or drainage. ENT: No nasal bleeding or discharge. Mucous membranes pink and moist. NECK: Trachea midline. No JVD. GASTROINTESTINAL: Abdomen soft, non-tender, nondistended. Hepatic and splenic margins not palpable. No CVA tenderness. There is no suprapubic tenderness MUSCULOSKELETAL: No obvious deformities. No clubbing. No cyanosis. No edema. NEUROLOGICAL: Awake and alert. No obvious cranial nerve deficits. Motor grossly within normal limits. Normal speech. PSYCHIATRIC: Appropriate mood and affect; insight and judgment normal. Data Data Last Documented VS Vital Signs Date Time Temp Pulse Resp B/P (MAP) Pulse Ox O2 Delivery O2 Flow Rate FiO2 08/25/17 12:21 98.7 78 16 132/68 (89) 97 Orders Orders Urinalysis - C+S If Indicated (08/25/17 13:23) Urine Culture (08/25/17 13:30) Labs Laboratory Tests Test 08/25/17 13:30 Urine Collection Type CLEAN CATCH Urine Color LIGHT-BROWN Urine Turbidity CLOUDY Urine pH 5.5 Urine Specific Reinbeck 1.022 Urine Protein 100 mg/dL Urine Glucose (UA) NEG mg/dL Urine Ketones NEG mg/dL Urine Occult Blood LARGE Urine Nitrite NEG Urine Bilirubin NEG Urine Leukocyte Esterase SMALL Urine RBC INNUM /hpf Urine WBC 9-14 /hpf Urine Squamous Epithelial Cells 0-5 /hpf Microscopic Urinalysis Comment CULTURE INDICATED MDM Medical Decision Making Medical Screen Exam Complete: Yes Emergency Medical Condition: Yes Medical Record Reviewed: Yes Differential Diagnosis Differential includes hematuria, UTI Narrative Course Urinalysis does show small leukocyte esterase and 9-12 white cells with a red cells. He'll be put on Bactrim and is to follow-up with Dr. Medeiros Diagnosis Primary Impression: Hematuria Additional Impression: Urinary tract infection Referrals: Jae Medeiros DO Disposition: 01 DISCHARGE HOME Condition: Stable Arvind Crocker MD Aug 25, 2017 13:31
[2017-08-25 13:44] LABS: BILIRUBIN, URINE NEG (NEG); BLOOD, URINE LARGE (NEG); GLUCOSE,URINE NEG (NEG); KETONE, URINE NEG (NEG); NITRITE,URINE NEG (NEG); PH, URINE 5.5 (5.0-8.5); URINE LEUKOCYTE ESTERASE SMALL (NEG)
[2017-08-25 13:51] LABS: URINE COLOR LIGHT-BROWN (YELLW/STRAW)
[2017-08-25 13:52] LABS: RBC, URINE INNUM /hpf (0-3); SQUAMOUS EPITHELIAL CELL URINE 0-5 /hpf (0-5)
[2017-08-25] MEDS ORDERED: CIPR-9 PO (14:20)
== END 2017-08-25 14:58 | disposition home or self-care (01) ==
LOC: PHED 11:56
DX: N39.0 Urinary tract infection, site not specified (principal); R31.9 Hematuria, unspecified; E78.00 Pure hypercholesterolemia, unspecified; I11.0 Hypertensive heart disease with heart failure; I50.9 Heart failure, unspecified; I48.91 Unspecified atrial fibrillation; I25.10 Atherosclerotic heart disease of native coronary artery without angina pectoris; Z79.01 Long term (current) use of anticoagulants
CPT/HCPCS: 81001; 87086; 99283

== ENCOUNTER 2017-10-07 09:48 | Day surgery (SDC) | payer MEDICARE, BC ==
[~2017-10-07] VITALS: Ht 180.3 cm; Wt 94.1 kg
[2017-10-07] VITALS (7 sets, daily range): BP systolic 132–157; BP diastolic 73–111; PULSE 60–84; RESP 16–18; TEMP 98; O2SAT 92–99
[~2017-10-07 09:48] MED LIST changes: -POTA-163 PO
[2017-10-07] MEDS ORDERED: TRAM50TA PO (10:08)
[2017-10-07] MEDS ORDERED: AMLO5TAB2 PO (10:08)
[2017-10-07] MEDS ORDERED: SODIUM CHLOR 0.9% 1000 ML IV SCH (10:30)
[2017-10-07 10:48] LABS: AUTOMATED NEUTROPHIL # 1.6 TH/MM3 (1.8-7.7); BASOPHIL % 0.3 % (0.0-2.0); EOSINOPHIL # 0.1 TH/MM3 (0-0.4); EOSINOPHIL % 3.9 % (0.0-4.0); HEMATOCRIT 32.9 % (39.0-51.0); HEMOGLOBIN 11.4 GM/DL (13.0-17.0); LYMPH % 29.8 % (9.0-44.0); LYMPHOCYTE # 0.9 TH/MM3 (1.0-4.8); MEAN CELL VOLUME 112.4 FL (80.0-100.0); MEAN CORPUSCULAR HEMOGLOBIN 38.8 PG (27.0-34.0); MEAN CORPUSCULAR HGB CONC 34.5 % (32.0-36.0); MEAN PLATELET VOLUME 10.1 FL (7.0-11.0); MONOCYTE # 0.3 TH/MM3 (0-0.9); PLATELET COUNT 64 TH/MM3 (150-450); RED BLOOD COUNT 2.93 MIL/MM3 (4.50-5.90); RED CELL DISTRIBUTION WIDTH 17.1 % (11.6-17.2); WHITE BLOOD COUNT 2.9 TH/MM3 (4.0-11.0)
[2017-10-07] MEDS ORDERED: LIDOCAINE HCL 1% 20 ML VIAL ONE (11:00)
[2017-10-07] MEDS ORDERED: fentaNYL CITRATE 250 MCG/5 ML AMP ONE (11:03)
[2017-10-07] MEDS ORDERED: MIDAZOLAM HCL 2 MG/2 ML VIAL ONE ×2 (11:03→14:28)
[2017-10-07 11:04] LABS: INTERNATIONAL NORMALIZED RATIO 1.1 RATIO; PROTHROMBIN TIME - PATIENT 10.8 SEC (9.8-11.6)
--- NOTE | 2017-10-07 12:03 | PD.RAD ---
Post Procedure Progress Note Pre Procedure Diagnosis: (1) Pancytopenia Post Procedure Diagnosis: (1) Pancytopenia Procedure Date: Oct 07, 2017 Supervising Radiologist: Zeeshan Monique Estimated blood loss: 5cc Anesthesia: Local, Conscious Sedation Plan of Activity Patient to Unit: ROPU Patient Condition: Good Additional Comments: Bone marrow biopsy completed without difficulty. Samples sent to pathology. Full dictated report to follow See PACS Report for procedural detail/treatment Zeeshan Monique MD Oct 07, 2017 12:03
--- NOTE | 2017-10-07 13:13 | RADRPT ---
EXAM DATE/TIME: 10/07/2017 11:38 [facility] COMPARISON: CT BRAIN W/O CONTRAST, July 18, 2017, 18:50. INDICATIONS : Pancytopenia. SEDATION TIME: 30 minutes BIOPSY SITE: Left ilium MEDICATION(S): 1.) 3 mg midazolam (Versed) IV 2.) 150 mcg fentanyl (Sublimaze) IV DEVICE(S): 1.) 11 gauge Bone marrow biopsy needle MEDICAL HISTORY : Hypertension. SURGICAL HISTORY : None. ENCOUNTER: Initial ACUITY: 1 day PAIN SCORE: 0/10 LOCATION: Left pelvis A total of one core specimen(s) were obtained and sent to the laboratory for pathologic evaluation. PROCEDURE: 1. CT guided bone marrow biopsy. 2. Conscious sedation with continuous EKG and oximetry monitoring. Prior to the procedure informed consent was obtained. Any appropriate prior imaging studies were rev iewed. Using automated exposure control and adjustment of the mA and/or kV according to patient size , radiation dose was kept as low as reasonably achievable to obtain optimal diagnostic quality images . DICOM format image data is available electronically for review and comparison. The site was prepped in a sterile fashion. Full sterile technique was used, including cap, mask, darshana rile gloves and gown and a large sterile sheet. Hand hygiene and 2% chlorhexidine and/or betadine/al cohol prep was utilized per protocol for cutaneous antisepsis. The skin and subcutaneous tissues wer e infiltrated with local anesthetic solution. With CT guidance the previously identified target was localized. Biopsy was performed using the presc ribed needle as above. Following biopsy marrow aspiration was performed with repeat puncture. Adequa te hemostasis was obtained with compression at the puncture site. Follow-up CT scan reveals no hemorrhage. Conscious sedation was performed with the prescribed dosages and duration as above in the presence of an independent trained radiology nurse to assist in the monitoring of the patient. EKG and oximetry remained stable throughout the procedure. The patient tolerated the procedure well and there were no complications. The patient was sent to Radiology Outpatient Unit in stable condition. CONCLUSION: 1. Uncomplicated CT guided bone marrow aspirate. 2. Uncomplicated CT guided bone marrow biopsy. Zeeshan Monique MD on October 07, 2017 at 13:11 Board Certified Radiologist. This report was verified electronically.
== END 2017-10-07 15:52 | disposition home or self-care (01) ==
LOC: HRAD 09:48 → HRIP 09:52 → HRAD 15:52
PROVIDERS: ATTEND Internal Medicine
DX: D61.818 Other pancytopenia (principal); I10 Essential (primary) hypertension; M19.90 Unspecified osteoarthritis, unspecified site; Z85.820 Personal history of malignant melanoma of skin; N20.0 Calculus of kidney; D69.6 Thrombocytopenia, unspecified; E78.5 Hyperlipidemia, unspecified; D53.9 Nutritional anemia, unspecified
CPT/HCPCS: 38222; 77012; 85025; 85097; 85610; 85730; 88184; 88185; 88237; 88264; 88280; 88305; 88311; 88313; 88341; 88342; 99152; 99153; C1830; J2250; J3010